=== PATIENT | male | born 1940 | race Caucasian/White ===

== ENCOUNTER 2022-04-23 17:20 | Emergency (ER) | payer MEDICAID ==
[~2022-04-23] VITALS: Ht 170.2 cm; Wt 92.1 kg
[2022-04-23 17:25] VITALS: BP_SYST 133
--- NOTE | 2022-04-23 17:30 | NUR ---
Patient triaged and placed in waiting room. VSS and patient appears in no acute distress at this time. Accompanied by FAMILY, awaiting available bed, and MD notified of need for MSE.
--- NOTE | 2022-04-23 18:45 | NUR ---
Placed in room 5 . Placed on night monitor, blood pressure machine and pulse oximeter. To gown for exam. Side rails up. Report given to LIBBY MARIE.
[2022-04-23] MEDS ORDERED: HALOPERIDOL LACTATE 5 MG/ML VIAL IM ONE (19:00)
--- NOTE | 2022-04-23 19:00 | NUR ---
81 yo M PMH HTN, brought by family member c/o RLQ abd pain x 2 wks intermittently, increasing pain these few days. Pt is AOx4, respiration even unlabored in room air, no acute distress. Denies cp, sob, n/v, diarrhea, constipation. Not passing gas today. Last meal was 4 h ago. BM regular. Skin dry clean and intact. VS stable. MD herrera at bed side
--- NOTE | 2022-04-23 20:09 | NUR ---
URINE SENT TO LAB.
[2022-04-23 20:16] LABS: BASOPHILS % (AUTO) 0.3 % (0.0-2.0); EOSINOPHILS # (AUTO) 0.2 K/uL (0.0-0.4); EOSINOPHILS % (AUTO) 1.9 % (0.0-4.0); HEMATOCRIT 40.7 % (36-54); LYMPHOCYTES # (AUTO) 1.8 K/uL (1.0-5.5); MEAN CORPUSCULAR VOLUME 92 fL (79.0-98.0); MONOCYTES # (AUTO) 1.2 K/uL (0.0-1.0); MONOCYTES % (AUTO) 13.6 % (1.7-9.3); NEUTROPHILS # (AUTO) 5.4 K/uL (1.8-7.7); NEUTROPHILS % (AUTO) 63.2 % (40.0-70.0); PLATELET COUNT (AUTO) 120 K/uL (130-430); RED BLOOD CELL COUNT(AUTO) 4.42 MIL/uL (4.2-6.2); RED CELL DISTRIBUTION WIDTH 13.2 % (9.0-15.0); WHITE BLOOD COUNT (AUTO) 8.5 K/uL (4.8-10.8)
[2022-04-23 20:18] LABS: BILIRUBIN,URINE NEGATIVE (NEGATIVE); CLARITY/URINE CLEAR (CLEAR); COLOR,URINE YELLOW (YELLOW); GLUCOSE,URINE NEGATIVE (NEGATIVE); KETONES,URINE NEGATIVE (NEGATIVE); NITRITE, URINE NEGATIVE (NEGATIVE); PROTEIN URINE NEGATIVE (NEGATIVE); UROBILINOGEN,URINE 0.2 (0.2-1.0)
[2022-04-23 20:47] LABS: ANION GAP 7 (5-15); CALCIUM 10.9 mg/dL (8.4-11.0); CHLORIDE 101 mmol/L (98-107); CREATININE 1.25 mg/dL (0.55-1.30); GLUCOSE 99 mg/dL (70-99); POTASSIUM 3.7 mmol/L (3.5-5.1); UREA NITROGEN, BLOOD 18 mg/dL (8-21)
[2022-04-23 20:59] LABS: ALANINE AMINOTRANSFERASE 112 U/L (12-78); ALBUMIN 3.5 g/dL (3.4-4.8); AMYLASE 70 U/L (0-100); ASPARTATE AMINOTRANSFERASE 72 U/L (10-37); C-REACTIVE PROTEIN QUANT 0.7 mg/dL (0-0.5); LACTATE DEHYDROGENASE 131 U/L (85-227); LIPASE 222 U/L (73-393); TOTAL BILIRUBIN 1.6 mg/dL (0.0-1.0)
--- NOTE | 2022-04-23 21:45 | NUR ---
DR. BENDER AT BEDSIDE
[2022-04-23] MEDS ORDERED: IBUP-1971 PO (22:04)
[2022-04-23] MEDS ORDERED: HYDR-3917 PO (22:04)
[2022-04-23 22:10] VITALS: BP_SYST 141
--- NOTE | 2022-04-23 22:10 | NUR ---
Patient given written and verbal discharge instructions and verbalizes understanding. ER MD discussed with patient the results and treatment provided. Patient in stable condition. ID arm band removed. Rx of NORCO, MOTRIN given. Patient educated on pain management and to follow up with PMD. Pain Scale 0/10. Opportunity for questions provided and answered. Medication side effect fact sheet provided.
[2022-04-23 22:40] LABS: BLOOD, URINE TRACE (NEGATIVE)
[2022-04-23 22:41] LABS: LEUKOCYTE ESTERASE ,URINE NEGATIVE (NEGATIVE)
[2022-04-23 22:43] LABS: BACTERIA,URINE None Seen /HPF (None Seen); MUCUS,URINE None Seen /LPF (None Seen); RBC,URINE NONE SEEN /HPF (0-3); WBC,URINE 0-3 /HPF (0-3)
== END 2022-04-23 22:10 | disposition home or self-care (01) ==
LOC: SED 17:20
DX: K80.20 Calculus of gallbladder without cholecystitis without obstruction (principal); N23 Unspecified renal colic; R11.0 Nausea; Z79.899 Other long term (current) drug therapy
CPT/HCPCS: 36415; 76376; 80053; 81000; 82150; 83605; 83615; 83690; 85025; 86140; 99284